=== PATIENT | female | born 1970 | race Caucasian/White ===

== ENCOUNTER → 2017-08-31 | Outpatient (CLI) | payer MEDICARE, OTHER ==
[~2017-08-31] MED LIST: B-COTAB18 PO; CYM/30 PO; DULO60CA44 PO; LAMO100T16 PO; LEVO150T9 PO; MELA1TAB5 PO; MULT-506 PO; OXYC-57 PO; TOPI100T20 PO
[2017-08-31 17:35] LABS: BASO % 0.4 %; BASO ABS # 0.03 K/uL (0-0.2); EOS % 1.5 %; EOS ABS # 0.12 K/uL (0-0.5); HEMOGLOBIN 13.7 g/dL (12.0-16.0); IG# 0.02 K/uL (0.00-0.02); LYMPH % 34.5 %; LYMPH ABS # 2.84 K/uL (1.2-3.4); MEAN CORPUSCULAR HEMOGLOBIN 30.6 pg (25-34); MEAN CORPUSCULAR HGB CONC 32.6 g/dl (32-36); MEAN PLATELET VOLUME 9.9 fL (7.4-10.4); MONO % 5.2 %; MONO ABS # 0.43 K/uL (0.11-0.59); NEUT % 58.2 %; PLATELET COUNT 307 K/uL (130-400); RED CELL DISTRIBUTION WIDTH CV 13.4 % (11.5-14.5); RED CELL DISTRIBUTION WIDTH SD 45.8 fL (36.4-46.3); WHITE BLOOD COUNT 8.24 K/uL (4.8-10.8)
[2017-08-31 18:05] LABS: ALBUMIN 3.3 gm/dl (3.4-5.0); BLOOD UREA NITROGEN 10 mg/dl (7-18); CARBON DIOXIDE 25 mmol/L (21-32); CREATININE 0.96 mg/dl (0.60-1.20); GLUCOSE 93 mg/dl (70-99); POTASSIUM 4.3 mmol/L (3.5-5.1); SODIUM 137 mmol/L (136-145)
[2017-08-31 18:16] LABS: ALKALINE PHOSPHATASE 75 U/L (45-117); ALT/SGPT 25 U/L (12-78); AST/SGOT 16 U/L (15-37); CHOLESTEROL 178 mg/dl (0-200); LDL CHOLESTEROL CALCULATED 109 mg/dl; TOTAL PROTEIN 7.8 gm/dl (6.4-8.2)
== END | disposition home or self-care (01) ==
LOC: C.LABPBG 15:20
PROVIDERS: ATTEND Family Medicine
DX: E03.9 Hypothyroidism, unspecified (principal); Z13.220 Encounter for screening for lipoid disorders; R07.9 Chest pain, unspecified

== ENCOUNTER → 2017-10-26 | Outpatient (CLI) | payer OTHER | END | disposition home or self-care (01) | LOC: C.LABPBG 08:50 | PROVIDERS: ATTEND Family Medicine | DX: E06.3 Autoimmune thyroiditis (principal) ==

== ENCOUNTER → 2017-12-28 | Outpatient (CLI) | payer OTHER ==
--- NOTE | 2017-12-28 21:41 | DIAGNOSTIC IMAGING REPORT ---
MRI OF THE RIGHT SHOULDER CLINICAL HISTORY: Right shoulder pain. COMPARISON STUDY: No priors. TECHNIQUE: MRI of the right shoulder was performed utilizing various T1 and T2 weighted sequences in the axial, sagittal, coronal planes. IV contrast was not administered for this examination. Note that interpretation is suboptimal without plain film correlate. The examination is modestly degraded by motion artifact. FINDINGS: Rotator cuff: There is tendinopathy of the supraspinatous tendon. There is high-grade partial-thickness tearing with a full-thickness tear seen approximately 8 mm from the leading edge on coronal image #9 and sagittal image #4. The tear measures at least 4 mm in AP diameter. There is no musculotendinous retraction. There is tendinopathy with high-grade partial-thickness tearing of the infraspinatus tendon. No full-thickness infraspinatus tear is seen. The teres minor and subscapularis tendons are intact. There is trace subacromial and subdeltoid bursal fluid. The acromioclavicular joint appears maintained noting mild productive degenerative change. Biceps tendon: The long head of the biceps tendon is normal in signal intensity and located within the bicipital groove. The anchor is maintained. Labrum: Grossly intact. Shoulder joint: There is a small joint effusion. Fluid is seen tracking inferiorly along the medial humeral shaft suggesting a HAGL injury. The articular cartilage over the glenoid is well maintained. There is no MRI evidence of fracture. Mild degenerative marrow edema is seen in the greater tuberosity of the humeral head. Musculature and soft tissues: There is mild edema within the bodies of supraspinatus and infraspinatus. No muscular atrophy is seen. IMPRESSION: 1. There is tendinopathy with high-grade partial thickness tearing as well as a full-thickness tear of the supraspinatus tendon as above. No musculotendinous retraction is seen. 2. There is tendinopathy with high-grade partial-thickness tearing of infraspinatus. 3. Mild muscular edema is seen in the bodies of supraspinatus and infraspinatus. 4. There is a small joint effusion. Findings suggest a HAGL lesion. Electronically signed by: Rusty Osuna M.D. 12/28/2017 9:39 PM Dictated Date/Time: 12/28/2017 9:33 PM
== END | disposition home or self-care (01) ==
LOC: C.MRI 20:26
PROVIDERS: ATTEND Family Medicine
DX: M25.511 Pain in right shoulder (principal)

== ENCOUNTER 2018-01-13 06:37 | Day surgery (SDC) | payer OTHER ==
--- NOTE | 2018-01-09 09:58 | History and Physical ---
History & Physical Date January 09, 2018. Chief Complaint Right Shoulder pain History of Present Illness The patient is a 47 year old female with complaints of Right shoulder pain. She sustained a fall on December 16. MRI was obtained and demonstrated a full thickness RCT. She has been doing physical therapy on her shoulder. Patient would like to proceed with arthroscopic rotator cuff repair. Patient denies fever, chills, sweats, chest pain, sob, maria, wheezing, n/v/d/c, numbness, tingling, urinary problems. ROS positive for headache and joint pain. Past Medical/Surgical History PMHx: Hypothyroidism, migraines PSHx: Cholecystectomy, EGD Social History: Patient is a non smoker, rare alcohol use. Denies drug use. Medications: Synthroid, Topamax, Lamictal, Cymbalta, Multivitamin Allergies: Penicillins-hives, Codeine-throat and tongue swelling. Additional History Hepatic Disease: No Endocrine Disorder: Yes (hypothyroid) Kidney Disease: No Hypertension: No Heart Disease: No Bleeding Tendencies: No Infectious Diseases: No Other: Had episode of hypotension with anesthesia last year after EGD Physical Examination Skin: warm/dry, no rash Eyes: normal inspection, sclerae normal ENT: normal ENT inspection, pharynx normal Head: normocephalic, atraumatic Neck: supple, no adenopathy, trachea midline Respiratory/Chest: lungs clear, normal breath sounds Cardiovascular: regular rate, rhythm, no murmur Extremities: + pertinent finding (Decreased ROM in all directions. Abduction to 90 degrees actively, 160 passively, flexion to 120, ER 60. Strength 3/5 with supraspinatus. Tenderness lateral and anterior acromion over greater tuberosity) Neurologic/Psych: no motor/sensory deficits, alert, oriented x 3 Diagnosis Right shoulder Rotator cuff tear Plan of Treatment We reviewed the results of the MRI. It demonstrates a full-thickness rotator cuff tear. We discussed various treatment measures and they wish to proceed with arthroscopic repair. Risks, benefits and alternatives to surgery including but not limited to infection, DVT, pain, stiffness, need for revision surgery, failure to relieve all symptoms, re-tear, damage to blood vessels, damage to nerves, risks of anesthesia were discussed with the patient and they wish to proceed. We will get this scheduled at their convenience. Surgery is scheduled for 01/13/18 for right shoulder arthroscopic rotator cuff repair and SAD.
[2018-01-10 13:06] VITALS: BMI 45.0
[~2018-01-13] VITALS: Ht 165.1 cm; Wt 122.7 kg
[~2018-01-13 06:37] MED LIST changes: +LACTATED RINGER'S 1000ML 1,000 ML IV SCH; -OXYC-57 PO
[2018-01-13 07:19] VITALS: BP 152/82; PULSE 99; TEMP 36.4; O2SAT 96; Ht 165.1 cm; Wt 122.7 kg
[2018-01-13] MEDS ORDERED: ROPIVACAINE 0.5% 5 MG/ML 30 ML VIAL ONE (07:29)
[2018-01-13] MEDS ORDERED: CEFAZOLIN SOD 3000MG/22.5 ML IV PUSH ONE (07:35)
[2018-01-13 07:54] LABS: INR 0.9 (0.9-1.1); PTT PATIENT 23.6 SECONDS (21.0-31.0)
[2018-01-13] MEDS ORDERED: MIDAZOLAM HCL 1 MG/ML 2ML VIAL ONE (08:28)
[2018-01-13] MEDS ORDERED: FENTANYL CITRATE INJ 50 MCG/1 ML 2 ML VIAL ONE ×2 (08:29→10:58)
--- NOTE | 2018-01-13 09:03 | History & Physical Bridge Note ---
H&P Re-Evaluation Bridge Note: I have examined the patient, reviewed the History & Physical and in the interval since the performance of the History & Physical I have noted the following changes of clinical significance: No changes noted
[2018-01-13] MEDS ORDERED: SCOPOLAMINE 1.5 MG TDSY TD ONE ×2 (09:08→09:15)
[2018-01-13] MEDS ORDERED: ATROPINE SULFATE 0.1 MG/ML 5ML SYR IV PRN (09:15)
[2018-01-13] MEDS ORDERED: PROMETHAZINE HCL INJ 12.5 MG in SODIUM CHLORIDE 0.9% 50ML 50 ML IV PRN (09:15)
[2018-01-13] MEDS ORDERED: FENTANYL CITRATE INJ 50 MCG/1 ML 2 ML VIAL IV PRN (09:15)
[2018-01-13] MEDS ORDERED: ONDANSETRON INJ 2 MG/ML 2 ML VIAL IV PRN (09:15)
[2018-01-13] MEDS ORDERED: KETOROLAC TROMETHAMINE 30 MG/ML VIAL IV. PRN (09:15)
[2018-01-13] MEDS ORDERED: LIDOCAINE/EPINEPHRINE 1% 20 ML VIAL ONE (09:28)
[2018-01-13] MEDS ORDERED: EpINEphrine HCL INJ 1 MG/ML 1ML SYRINGE ONE (09:28)
[2018-01-13] MEDS ORDERED: GLYCOPYRROLATE INJ 0.2 MG/ML VIAL ONE (10:38)
[2018-01-13] MEDS ORDERED: ROCURONIUM BROMIDE 10 MG/ML 5 ML VIAL ONE (10:38)
[2018-01-13] MEDS ORDERED: NEOSTIGMINE METHYLSULFATE 5 MG/5 ML SYR ONE (10:38)
[2018-01-13] MEDS ORDERED: ONDANSETRON INJ 2 MG/ML 2 ML VIAL ONE (10:38)
[2018-01-13] MEDS ORDERED: PROPOFOL IV EMULSION 10 MG/ML 20 ML VIAL ONE (10:38)
[2018-01-13] MEDS ORDERED: DEXAMETHASONE SOD INJ 4 MG/ML VIAL ONE (10:38)
[2018-01-13] MEDS ORDERED: LIDOCAINE HCL 2% 2 ML VIAL (20MG/ML) ONE (10:38)
--- NOTE | 2018-01-13 11:12 | [facility] Operative Report ---
Operative Report Operative Date January 13, 2018. Pre-Operative Diagnosis Right shoulder rotator cuff tear Post-Operative Diagnosis Right Shoulder Rotator Cuff Tear, Labral Tear, Impingement, Synovitis Procedure(s) Performed Right Shoulder Arthroscopy with Rotator Cuff Repair, Subacromial Decompression, Extensive Debridement Surgeon Dr. Patrick Kyle Electronic Imager Surgeon(s) Elpidio Caldwell PA-C Estimated Blood Loss 5ml Specimens None per surgeon. Drains None Anesthesia Type General Regional Complication(s) none Disposition Recovery Room / PACU Indications The patient is a 39-year-old female developed a full-thickness tear of the supraspinatus. We discussed first treatment measures and she wishes to proceed for arthroscopic repair. Description of Procedure The MRI demonstrated a full-thickness rotator cuff tear. We discussed various treatment measures. The patient wished to proceed with arthroscopic repair. Risks, benefits and alternatives to surgery including, but not limited to, infection DVT, pain, stiffness, need for revision surgery, failure to relieve all symptoms, damage to blood vessels, damage to nerves, risk of anesthesia were discussed with the patient and they wished to proceed. The patient was identified. Laterality was confirmed and marked. The patient received a preoperative antibiotic as well as an interscalene block. They were transferred to the operating room and placed in the supine position and induced into general endotracheal anesthesia per the anesthesia staff. The patient was then safely transferred to the lateral decubitus position, secured by a beanbag. An axillary roll was placed. All pressure points were well-padded. The limb was placed in 10 pounds of lateral traction and then prepped and draped in the usual standard manner with ChloraPrep. The portal sites were anesthetized with 2% lidocaine with epinephrine. I made a standard posterior viewing portal made through a stab incision and then bluntly entered the glenohumeral joint. Then under spinal needle localization, I establish an anterior superolateral portal. The patient had a full-thickness rotator cuff tear through the [supraspinatus]. They had a degenerative tear in the anterior, superior and posterior aspects of the glenoid labrum. This was debrided back to a stable base utilizing a shaver. Synovitic change in the anterior aspect of the joint was debrided utilizing a shaver. Cartilage of the humeral head and glenoid [were normal]. The long head of the biceps tendon had some minor degeneration to the superior labrum insertion. This is debrided utilizing combination shaver as well as cautery wand.. The subscapularis [was normal]. I then removed the instrumentation from the joint and entered the subacromial space and established a lateral portal. There was a full-thickness rotator cuff tear that measured about 1 cm in diameter. I debrided the footprint with a shaver to establish a good bleeding response. Through a stab incision I placed a 5.5 mm HEALICOIL suture anchor. I passed the ultra braid sutures in a horizontal mattress with a FirstPass. I tied the ULTRABRAID sutures with sliding [place] knots reinforced for 3 half hitches on alternating posts. I then took the ULTRABRAID sutures and I placed them in a 5.5 mm Multi-Fix S anchor. I placed this laterally, completing my double row construct. I then released the CA ligament with cautery and performed a subacromial decompression , first removing the anterior inferior spur from laterally and then completing with a cutting block technique. All instrumentation was then removed from the shoulder. Portal sites were closed with nylon. A sterile dressing was applied and a sling placed. All needle and sponge counts were correct at the end of the procedure. The patient was transferred to the PACU in stable condition without apparent complication. The PA-C was necessary for assistance with procedure for assistance in positioning, prepping, draping, retraction and closure. I attest to the content of the Intraoperative Record and any orders documented therein. Any exceptions are noted below.
[2018-01-13] MEDS ORDERED: OXYC-57 PO (11:28)
--- NOTE | 2018-01-13 11:31 | Discharge Instructions ---
Discharge Instructions Date of Service January 13, 2018. Visit Reason for Visit: Right Shoulder Rotator Cuff Tear, Impingement Synd Discharge Discharge Diagnosis / Problem: Right shouler RTC tear, impingement syndrome Discharge Goals Goal(s): Decrease discomfort, Improve function Activity Recommendations Activity Limitations: per Instructions/Follow-up section Anesthesia . Post Anesthesia Instructions: If you have had General Anesthesia or IV Sedation: * Do not drive today. * Resume driving when surgeon permits. * Do not make important decisions or sign legal documents today. * Call surgeon for: 1. Temperature elevations greater than 101 degrees F. 2. Uncontrollable pain. 3. Excessive bleeding. 4. Persistent nausea and vomiting. 5. Medication intolerance (nausea, vomiting or rash). * For nausea and vomiting use only clear liquids such as: tea, soda, bouillon until nausea subsides, then gradually increase diet as tolerated. * If you have any concerns or questions, call your surgeon's office. If physician is unavailable and it is an emergency, call 911 or go to the nearest emergency room. . Instructions / Follow-Up Instructions / Follow-Up U DISCHARGE INSTRUCTIONS: ROTATOR CUFF REPAIR SELF CARE INSTRUCTIONS A. You are permitted to loosen your sling/immobilizer to move your elbow, wrist , and hand to prevent stiffness. You should use your well arm (good arm) to assist the operated extremity when trying to raise the arm away from the body, hygiene purposes. Do NOT actively try to use/engage your shoulder muscles in operative arm at this time. You should NOT do overhead activity, lifting, or attempt to reach behind your back. B. You may/may not be instructed to start Physical Therapy upon discharge depending upon the size and difficulty of the repair. You will be provided a prescription for therapy with specific restrictions, if needed, at time of discharge. C. At 48 hours post-operatively, you may change your dressing. (Leave white steri-strips intact if present). Use band-aids and change daily. You are allowed to shower at this time and get the incision area wet, but DO NOT soak or submerge incision area in water. (No baths, swimming pools, hot tubs) D. Do NOT apply soap or any ointment/lotions directly over incision. E. You may use ice as needed to operative shoulder SPECIAL CARE INSTRUCTIONS: VERY IMPORTANT TO READ AND REVIEW A. There are a few signs you need to watch for after you are home. Call [facility] at [phone] if you experience any of the following: a. Increased severe shoulder pain. Some pain is expected especially when you exercise b. Increased swelling in your shoulder or arm; pain or swelling in either upper extremity. (Note: swelling and stiffness is normal and expected for several weeks post op, depending on type of shoulder surgery you had). c. Any fluid or drainage from the incision; redness of the incision. d. Shortness of breath or chest pain. B. Please call [facility] at [phone] if you have any questions or concerns about your operation or recovery. C. Call your physician if: a. Temperature is greater than 101 degrees (F). b. Pain is not relieved by prescribed pain medications. c. Increase drainage or redness from incision. d. Unanswered questions or concerns. D. Pain Medication: a. You will be prescribed pain medication upon discharge that should last till your first post-operative appointment. b. If you experience nausea and/or skin rash, discontinue this medication and contact our office for an alternative medication. c. Caution- narcotic pain medication can cause constipation. FOLLOW UP VISIT: Please call [facility] at [phone] to schedule a follow up appointment with Dr. Kyle 10-14 days from your surgery date. Diet Recommendations Recommended Home Diet: resume previous diet Procedures Procedures Performed: Right Shoulder Arthroscopy with Rotator Cuff Repair, Subacromial Decompression, Extensive Debridement Pending Studies Studies pending at discharge: no Medical Emergencies . Who to Call and When: Medical Emergencies: If at any time you feel your situation is an emergency, please call 911 immediately. . Non-Emergent Contact Non-Emergency issues call your: Surgeon Call Non-Emergent contact if: temperature is above 101, your pain is not controlled, your pain is concerning you, wound has increased drainage, wound has increased redness . . "Provider Documentation" section prepared by Elpidio Caldwell. . [place] Search Results: patient reviewed within database, no issues identified
--- NOTE | 2018-01-13 12:10 | Anesthesiology Progress Note ---
Anesthesia Post Op Note Date & Time January 13, 2018 at 12:10 Vital Signs Pain Intensity: 0 Vital Signs Past 12 Hours Date Time Temp Pulse Resp B/P (MAP) Pulse Ox O2 Delivery O2 Flow Rate FiO2 01/13/18 12:05 36.3 85 18 123/73 97 Nasal Cannula 2 01/13/18 11:55 84 18 106/70 95 Nasal Cannula 2 01/13/18 11:45 87 18 109/60 96 Oxymask 10 01/13/18 11:35 88 18 120/74 96 Oxymask 10 01/13/18 11:29 36.6 86 16 115/68 95 Oxymask 10 01/13/18 07:19 36.4 99 20 152/82 (105) 96 Room Air Notes Mental Status: alert / awake / arousable, participated in evaluation Pt Amnestic to Procedure: Yes Nausea / Vomiting: adequately controlled Pain: adequately controlled Airway Patency, RR, SpO2: stable & adequate BP & HR: stable & adequate Hydration State: stable & adequate Anesthetic Complications: no major complications apparent
[2018-01-13 12:20] VITALS: BP 113/71; PULSE 84; TEMP 36.5; O2SAT 95
[2018-01-13 12:50] VITALS: BP 117/77; PULSE 87; TEMP 36.4; O2SAT 96
[2018-01-13 13:20] VITALS: BP 124/79; PULSE 67; TEMP 36.5; O2SAT 94
== END 2018-01-13 13:51 | disposition home or self-care (01) ==
LOC: C.ACU 06:37
PROVIDERS: ATTEND Orthopaedic Surgery
DX: S46.011A Strain of muscle(s) and tendon(s) of the rotator cuff of right shoulder, initial encounter (principal); S43.431A Superior glenoid labrum lesion of right shoulder, initial encounter; M75.41 Impingement syndrome of right shoulder; M65.811 Other synovitis and tenosynovitis, right shoulder; W19.XXXA Unspecified fall, initial encounter; E03.9 Hypothyroidism, unspecified; Z90.49 Acquired absence of other specified parts of digestive tract; Z79.899 Other long term (current) drug therapy; Z98.890 Other specified postprocedural states; Z88.0 Allergy status to penicillin; Z88.5 Allergy status to narcotic agent; E66.9 Obesity, unspecified; Z68.42 Body mass index [BMI] 45.0-49.9, adult

== ENCOUNTER 2019-02-22 09:39 | Observation (INO) ==
[2019-02-22] MEDS ORDERED: ONDANSETRON INJ 2 MG/ML 2 ML VIAL IV STA (10:05)
[2019-02-22] MEDS ORDERED: SODIUM CHLORIDE 0.9% 1000ML 1,000 ML IV ONE (10:05)
[2019-02-22] MEDS ORDERED: MoRPHine SULFATE 4 MG/ML 1 ML CARP\\VIAL IV STA (10:05)
--- NOTE | 2019-02-22 10:12 | Emergency Department Note ---
ED Provider Note CHIEF COMPLAINT: Right lower quadrant pain HISTORY OF PRESENTING ILLNESS: This is a 49-year-old female who presents to the emergency department by private vehicle with complaint of right lower quadrant pain. She states that she had a CT scan performed as an outpatient this morning, she states she was called and told to come to the ER because she has acute appendicitis. Patient states that she started with some abdominal pain about 2 weeks ago it became much worse about 4 or 5 days ago and she has been having increased nausea and a decreased appetite the past few days. She also states she has been having some diarrhea the past few days. She denies any vomiting and she denies any fevers or chills. She has had a cholecystectomy, she denies other abdominal surgeries. She last ate at 8:30 AM today. She denies any other symptoms of headaches, dizziness or syncope, chest pain, shortness of breath, back pain, urinary complaints, or unusual rash. REVIEW OF SYSTEMS: A complete 10 point review of systems was reviewed with the patient with pertinent positives and negatives as per history of present illness. All else were negative. PAST MEDICAL HISTORY: GERD, arthritis, hypothyroidism, migraines, depression, cholecystectomy, diverticulitis SOCIAL HISTORY: Lives at home, she denies tobacco use ALLERGIES: Reviewed in chart PHYSICAL EXAM: CONSTITUTIONAL: Pleasant and cooperative. Nontoxic-appearing and in no acute distress. Well appearing and well nourished. HEENT: Normocephalic, atraumatic. PERRL, EOMI. pharynx normal. NECK: Supple, full active range of motion without discomfort. RESPIRATORY: Clear to auscultation bilaterally with no wheezing, crackles, rhonchi or stridor. Equal expansion bilaterally. CARDIOVASCULAR: Regular rate and rhythm with no murmurs, rubs or gallops. Normal peripheral perfusion. No edema. GASTROINTESTINAL: Moderately tender to palpation in the right lower quadrant, positive guarding, negative rebound. Positive McBurney's point tenderness. Abdomen is soft, nondistended, obese abdomen. No palpable masses or HSM. Bowel sounds present in all quadrants. No CVA tenderness bilaterally. MUSCULOSKELETAL: Full range of motion of all joints without discomfort. INTEGUMENTARY: No rash or other significant dermatologic conditions noted. NEUROLOGIC: Alert and oriented X 4 with normal affect. Normal strength and sensation in all 4 extremities. Normal speech. Normal gait observed. ED COURSE AND MEDICAL DECISION MAKING: CC: Patient presenting with complaint of right lower quadrant abdominal pain DIFFERENTIAL DIAGNOSIS: Includes, but not limited to appendicitis, abdominal abscess, perforation, among others. INTERPRETATION OF LABS: No leukocytosis, no anemia, normal platelets, no significant electrolyte abnormalities, normal renal function, normal liver enzymes and lipase. Urine negative. IMAGING: CT abd pelvis IV con only CLINICAL HISTORY: 49 years-old Female presenting with R19.8 Other specified symptoms and signs, upper abdominal pain. TECHNIQUE: Multidetector CT of the abdomen and pelvis was performed after the administration of intravenous contrast. IV contrast: 93 mL of Optiray 320. One or more dose lowering techniques were used consistent with the principles of ALARA (as low as reasonably achievable), including automatic exposure control, mA or kV adjustment to individual patient size, and/or use of iterative reconstruction. COMPARISON: 02/14/2019. CT DOSE (mGy.cm): The estimated cumulative dose is 1224.78 mGy.cm. FINDINGS: Criminal Justice Lawyer topogram: Unremarkable. Lung bases: Normal heart size. No pericardial or pleural effusion. No focal infiltrate or nodule at the lung bases. Liver: Normal morphology. No liver lesion. Patent hepatic vasculature. Biliary: Mild biliary ductal prominence likely a reservoir effect in the post cholecystectomy state. Gallbladder surgically absent. Pancreas: Normal. Spleen: Normal. Adrenal glands: Normal. Kidneys and ureters: Normal renal parenchyma. 5 mm nonobstructing left renal calculus. No hydronephrosis. Ureters normal. Bladder: Incompletely evaluated secondary to underdistention. Pelvic organs: Uterus and ovaries normal. Bowel: The appendix is dilated up to 12 mm with vague surrounding per iappendiceal fat stranding. No bowel obstruction. Trace hiatal hernia. Peritoneal cavity: No free fluid or intraperitoneal gas. Lymph nodes: Few prominent mesenteric lymph nodes in the superior pelvis in the region of the appendix. Vasculature: Aorta and IVC patent and normal in caliber. Abdominal wall: Normal. Musculoskeletal: Normal. IMPRESSION: 1. Acute uncomplicated appendicitis. Surgical consultation is necessary. MEDICATION RECONCILIATION: I attest that I have personally reviewed the patient's current medication list. INITIAL VITAL SIGNS REVIEW: I reviewed the patient's initial vital signs and interpret them as follows: T: Afebrile; BP: Normotensive; HR: Mildly tachycardic; RR: Within normal limits; Pulse Ox: Within normal limits on room air. Blood pressure screening: The patient was found to have normal blood pressure on screening and does not require follow-up for repeat blood pressure check. MDM SUMMARY: Patient was evaluated at bedside, history and physical exam performed. Patient is alert and oriented, no acute distress, resting calmly in stretcher. Patient has tenderness to palpation the right lower quadrant, positive guarding, but no acute abdomen. CT abdomen/pelvis reviewed as above, noted below for uncomplicated acute appendicitis, no evidence of abscess or perforation. Orders were placed at bedside for labs, IV fluid bolus for hydration, IV mor phine for pain, IV Zofran for nausea, and keeping her n.p.o. at this time. Patient discussed with Dr. King, who agrees with my assessment, plan, and disposition. I spoke on the phone with Kleber Patel PA-C with general surgery, who agrees to evaluate the patient for admission/OR. Patient reassessed multiple times throughout ED stay, she is remained hemodynamically stable and afebrile and reports her pain is improved after the morphine. The patient was updated on all results and plan for admission and probable OR today, she verbalized understanding and was agreeable to this plan. The patient was stable at time of admission. The chart was completed utilizing [employer] Speech voice recognition software. Grammatical errors, random word insertions, pronoun errors, and incomplete sentences are an occasional consequence of this system due to software limitations, ambient noise, and hardware issues. Any formal questions or concerns about the content, text, or information contained within the body of this dictation should be directly addressed to the nurse practitioner for clarification. Impression & Plan Appendicitis Past Med/Surg History Medical History Stress incontinence in female Rotator cuff tear Jennifer's thyroiditis GERD without esophagitis Depression Common migraine with intractable migraine Arthritis Morbid obesity PONV (postoperative nausea and vomiting) Anemia Diverticulitis Pneumonia Right rotator cuff tear Surgical History S/P arthroscopy of shoulder patient was noted to aspirate after extubation as well as have PONV S/P cholecystectomy Family History Sister Alcohol abuse Anxiety Depression Diabetes Myocardial infarction Gallbladder disease Asthma Mother Anxiety Depression Gallbladder disease Myocardial infarction Asthma Father Coronary heart disease Other Hypertension Nephrolithiasis Social History Preferred Language: Pashto Communication Ability: Effective 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 Beliefs That Will Affect Care: None marital status: Current Living Situation: Alone Other Information That Helps Us Care for You: No Feels Safe at Home: Yes Safety Concerns: Feels Safe At This Time Smoking Status: Never smoker Do You Dip or Chew Tobacco: No Second Hand Exposure: No Tobacco Cessation Education Requested by Patient: No Hx Alcohol Use: No Hx Substance Use: No Results & Data Vital Signs Vital Signs - 24 hr 02/22/19 09:44 02/22/19 11:18 02/22/19 11:21 Temperature 36.5 C 37.1 C Temperature Source Oral Oral Sepsis Recent Fever Within 48 Hours No Sepsis Action Taken by Nursing No Action Required Pulse Rate 91 H 80 Pulse Rate from SpO2 Sensor 79 Respiratory Rate 18 26 H Blood Pressure 100/68 Blood Pressure Mean 78 Blood Pressure Position Sitting Pulse Oximetry 97 98 Oxygen Delivery Method Room Air 02/22/19 11:22 02/22/19 11:23 02/22/19 11:30 Temperature Temperature Source Sepsis Recent Fever Within 48 Hours Sepsis Action Taken by Nursing Pulse Rate 67 78 69 Pulse Rate from SpO2 Sensor 68 79 70 Respiratory Rate 19 23 19 Blood Pressure 114/60 132/66 Blood Pressure Mean 78 88 Blood Pressure Position Pulse Oximetry 96 98 97 Oxygen Delivery Method Laboratory Data Result diagrams: 02/22/19 10:09 02/22/19 10:09 Lab Results 02/22/19 02/22/19 02/22/19 Range/Units 10:09 10:09 10:52 WBC 6.40 (4.8-10.8) K/uL RBC 4.46 (4.2-5.4) M/uL Hgb 13.6 (12.0-16.0) g/dL Hct 40.8 (37-47) % MCV 91.5 (80-100) fL MCH 30.5 (25-34) pg MCHC 33.3 (32-36) g/dL RDW Std Deviation 43.2 (36.4-46.3) fL RDW Coeff of Lissy 13.0 (11.5-14.5) % Plt Count 293 (130-400) K/uL MPV 9.6 (7.4-10.4) fL Immature Gran % (Auto) 0.5 % Neut % (Auto) 51.5 % Lymph % (Auto) 39.2 % Cochran % (Auto) 6.3 % Eos % (Auto) 2.0 % Baso % (Auto) 0.5 % Immature Gran # (Auto) 0.03 H (0.00-0.02) K/uL Neut # (Auto) 3.30 (1.4-6.5) K/uL Lymph # (Auto) 2.51 (1.2-3.4) K/uL Cochran # (Auto) 0.40 (0.11-0.59) K/uL Eos # (Auto) 0.13 (0-0.5) K/uL Baso # (Auto) 0.03 (0-0.2) K/uL Sodium 140 (136-145) mmol/L Potassium 3.9 (3.5-5.1) mmol/L Chloride 110 H (98-107) mmol/L Carbon Dioxide 25 (21-32) mmol/L Anion Gap 5.0 (3-11) BUN 14 (7-18) mg/dl Creatinine 1.13 (0.6-1.2) mg/dl Est Cr Clr Drug Dosing 75.8 ml/min Est GFR ( Amer) 65.6 Est GFR (Non-Af Amer) 56.6 BUN/Creatinine Ratio 12.0 (10-20) Glucose 94 (70-99) mg/dl Calcium 9.1 (8.5-10.1) mg/dl Total Bilirubin 0.3 (0.2-1) mg/dl AST 15 (15-37) U/L ALT 24 (12-78) U/L Alkaline Phosphatase 86 (45-117) U/L Total Protein 7.4 (6.4-8.2) gm/dl Albumin 3.2 L (3.4-5.0) gm/dl Globulin 4.2 H (2.5-4.0) gm/dl Albumin/Globulin Ratio 0.8 L (0.9-2) Lipase 117 (73-393) U/L Urine Test Negative (Negative) Administered Medications Lactated Ringer's (Lr) 1,000 mls @ 125 mls/hr IV .Q8H JEAN PIERRE Stop: 03/24/19 12:42 Last Admin: 02/22/19 12:51 Dose: 125 mls/hr Documented by: [id number] Ondansetron HCl (Zofran) 4 mg IV Q4H PRN PRN Reason: Nausea And Vomiting Stop: 03/24/19 12:42 Last Admin: 02/22/19 12:51 Dose: 4 mg Documented by: [id number] Discontinued Medications Sodium Chloride (Nss 1000ml) 1,000 mls @ 999 mls/hr IV .Q1H1M ONE Stop: 02/22/19 11:05 Last Infusion: 02/22/19 11:44 Dose: 0 mls/hr Documented by: [id number] Admin: 02/22/19 10:36 Dose: 999 mls/hr Documented by: [id number] Lidocaine/Epinephrine (Xylocaine/Epinephrine 1%) Confirm Administered Dose 20 ml .ROUTE .STK-MED ONE Stop: 02/22/19 10:46 Last Admin: 02/22/19 13:01 Dose: Not Given Documented by: [id number] Morphine Sulfate (Morphine Sulfate) 4 mg IV NOW STA Stop: 02/22/19 10:06 Last Admin: 02/22/19 10:35 Dose: 4 mg Documented by: [id number] Ondansetron HCl (Zofran) 4 mg IV NOW STA Stop: 02/22/19 10:06 Last Admin: 02/22/19 10:36 Dose: 4 mg Documented by: [id number] Scopolamine (Transderm-Scop) Confirm Administered Dose 1.5 mg .ROUTE .STK-MED ONE Stop: 02/22/19 15:47 Last Admin: 02/22/19 15:50 Dose: 1.5 mg Documented by: [id number] Discharge Plan Visit Data *Final* Discharge Date/Time: 02/22/19 12:30 Chief Complaint: Abdominal Pain Stated Complaint: ABDOMINAL PAIN ED Provider: Eliud King ED Midlevel Provider: Bhavna Gomez Discharge Problem: Appendicitis Patient Disposition: Admitted As Inpatient Condition: Good Discharge Instructions Interventions: ED Discharge Assessment Last Done: 02/22/19 12:30
[2019-02-22] MEDS ORDERED: fentaNYL citrate 100 MCG/2 ML VIAL IV PRN (10:40)
[2019-02-22] MEDS ORDERED: ATROPINE SULFATE 0.1 MG/ML 10ML SYR IV PRN ×2 (10:40→15:46)
[2019-02-22] MEDS ORDERED: ePHEDrine sulfate 50 MG/ML AMP IV PRN ×2 (10:40→15:46)
[2019-02-22] MEDS ORDERED: ONDANSETRON INJ 2 MG/ML 2 ML VIAL IV PRN ×2 (10:40→15:46)
[2019-02-22 10:42] LABS: Basophils # (auto) 0.03 K/uL (0-0.2); Basophils % (auto) 0.5 %; Eosinophils # (auto) 0.13 K/uL (0-0.5); Hematocrit (blood only) 40.8 % (37-47); Hemoglobin 13.6 g/dL (12.0-16.0); Immature Granulocytes # (auto) 0.03 K/uL (0.00-0.02); Immature Granulocytes % (auto) 0.5 %; Lymphocytes # (auto) 2.51 K/uL (1.2-3.4); Lymphocytes % (auto) 39.2 %; Mean Corpuscular Hgb Conc 33.3 g/dL (32-36); Mean Corpuscular Volume 91.5 fL (80-100); Mean Platelet Volume 9.6 fL (7.4-10.4); Monocytes % (auto) 6.3 %; Neutrophils % (auto) 51.5 %; Platelet Count 293 K/uL (130-400); RDW Standard Deviation 43.2 fL (36.4-46.3); Red Blood Count 4.46 M/uL (4.2-5.4)
[2019-02-22] MEDS ORDERED: LIDOCAINE/EPINEPHRINE 1% 20 ML VIAL ONE ×2 (10:45→15:09)
[2019-02-22 10:58] LABS: Albumin Level 3.2 gm/dl (3.4-5.0); Calcium 9.1 mg/dl (8.5-10.1); Creatinine Clr Calc Pharmacy 75.8 ml/min; Est GFR (African American) 65.6; Est GFR (Non-African American) 56.6; Potassium 3.9 mmol/L (3.5-5.1)
[2019-02-22 11:01] LABS: Albumin Globulin Ratio 0.8 (0.9-2); Bilirubin,Total 0.3 mg/dl (0.2-1); Globulin 4.2 gm/dl (2.5-4.0); Total Protein 7.4 gm/dl (6.4-8.2)
[2019-02-22 11:05] LABS: Pregnancy Test, Urine Negative (Negative)
--- NOTE | 2019-02-22 11:19 | History & Physical Report ---
Date of Service February 22, 2019 Assessment & Plan (1) Appendicitis: History not classic for appendicitis, but appendix is abnormal on CT. Will plan for laparoscopic appendectomy this afternoon after she has been NPO. History of Present Illness Primary Care Provider: Fanta Martinez, DO 49 y/o female with 1 week or more of vague abdominal pain, nausea, loss of appetite. She had diarrhea beginning Tuesday, pain has localized to periumbilical/RLQ. She saw her PCP yesterday, had outpatient CT this morning and referred to the ER for reading of appendicitis. Had breakfast around 8:30. No fevers or chills, some nausea, no vomiting. Previous lap lizy. Allergies Allergy/AdvReac Type Severity Reaction Status Date / Time codeine Allergy Severe TONGUE AND Verified 02/22/19 10:23 THROAT SWELLING Penicillins Allergy Severe HIVES Verified 02/22/19 10:23 Home Medications Home Medications Medication Instructions Recorded Confirmed Type fremanezumab-vfrm 225 mg/1.5 mL 225 mg SQ MONTHLY #1.5 ml 02/07/19 02/22/19 Rx subcutaneous syringe melatonin 10 mg capsule 10 mg PO HS PRN #30 cap 02/07/19 02/22/19 Rx propranolol 20 mg tablet 20 mg PO BID #60 tab 02/07/19 02/22/19 Rx tamsulosin 0.4 mg capsule 0.4 mg PO HS #90 cap 02/07/19 02/22/19 Rx topiramate 100 mg tablet 100 mg PO BID #60 tab 02/07/19 02/22/19 Rx aspirin 81 mg PO QAM 02/22/19 02/22/19 History duloxetine [Cymbalta] 60 mg PO QAM 02/22/19 02/22/19 History lamotrigine [Lamictal] 50 mg PO PM 02/22/19 02/22/19 History levothyroxine [Synthroid] 150 mcg PO QAM 02/22/19 02/22/19 History magnesium oxide 500 mg PO PM 02/22/19 02/22/19 History multivitamin 1 cap PO QAM 02/22/19 02/22/19 History rosuvastatin [Crestor] 20 mg PO PM 02/22/19 02/22/19 History vitamin B complex [B 1 tab PO QAM 02/22/19 02/22/19 History Complex-Vitamin B12] Past Med/Surg History Medical History Stress incontinence in female Rotator cuff tear Jennifer's thyroiditis GERD without esophagitis Depression Common migraine with intractable migraine Arthritis Morbid obesity PONV (postoperative nausea and vomiting) Anemia Diverticulitis Pneumonia Right rotator cuff tear Surgical History S/P arthroscopy of shoulder patient was noted to aspirate after extubation as well as have PONV S/P cholecystectomy Family History Sister Alcohol abuse Anxiety Depression Diabetes Myocardial infarction Gallbladder disease Asthma Mother Anxiety Depression Gallbladder disease Myocardial infarction Asthma Father Coronary heart disease Other Hypertension Nephrolithiasis Social History Preferred Language: Sudanese Communication Ability: Effective 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 Beliefs That Will Affect Care: None marital status: Current Living Situation: Alone Other Information That Helps Us Care for You: No Feels Safe at Home: Yes Safety Concerns: Feels Safe At This Time Smoking Status: Never smoker Do You Dip or Chew Tobacco: No Second Hand Exposure: No Tobacco Cessation Education Requested by Patient: No Hx Alcohol Use: No Hx Substance Use: No Review of Systems Constitutional: + malaise and + anorexia; no fever and no chills Gastrointestinal: + abdominal pain, + nausea and + diarrhea/loose stools; no vomiting Physical Exam Constitutional: WD/WN, vitals as above Respiratory: normal respiratory effort, lungs clear to auscultation Cardiovascular: RRR, no murmur, no edema Gastrointestinal (Abdomen): Inspection/Auscultation: abdomen not distended Percussion/Palpation: + abdomen tender (RLQ/RMQ) and abdomen soft; no guarding Skin: no rashes, warm and dry Results & Data Vital Signs (Past 12 Hours) Vital Signs Temp Pulse Resp BP Pulse Ox 02/22/19 09:44 36.5 C 91 H 18 100/68 97
--- NOTE | 2019-02-22 11:33 | History & Physical Bridge Note ---
Date of Service February 22, 2019 History & Physical Bridge Note I have examined the patient, reviewed the History & Physical and in the interval since the performance of the History & Physical I have noted the following changes of clinical significance: no changes noted will proceed with lap appy possible open r and c explained to pt including that surgery may not help diarrhea and may need further work up anesthesia wants to wait 8 hours after her oral intake before doing surgery
[2019-02-22] MEDS ORDERED: MoRPHine SULFATE 4 MG/ML 1 ML CARP\\VIAL IV PRN (12:43)
[2019-02-22] MEDS: ONDANSETRON INJ 2 MG/ML 2 ML VIAL IV PRN ×3 (12:51→23:32)
[2019-02-22] MEDS: LACTATED RINGER'S 1,000 ML IV SCH ×2 (12:51→21:05)
[2019-02-22] MEDS ORDERED: SCOPOLAMINE 1.5 MG TDSY ONE (15:46)
[2019-02-22] MEDS ORDERED: PHENYLEPHRINE 100MCG/ML 5ML SYR IV PRN (15:46)
[2019-02-22] MEDS ORDERED: LABETALOL HCL IV 5 MG/ML 20ML IV PRN (15:46)
[2019-02-22] MEDS ORDERED: SCOPOLAMINE 1.5 MG TDSY TD ONE (15:47)
[2019-02-22] MEDS ORDERED: LIDOCAINE HCL 2% 2 ML VIAL/AMP(20MG/ML) INFIL ONE (15:48)
[2019-02-22] MEDS ORDERED: PROPOFOL IV EMULSION 10 MG/ML 20 ML VIAL IV ONE (15:48)
[2019-02-22] MEDS ORDERED: ROCURONIUM BROMIDE 10 MG/ML 5 ML VIAL ONE ×2 (15:48→16:46)
[2019-02-22] MEDS ORDERED: SUCCINYLCHOLINE CHLORIDE 20 MG/ML 10 ML VIAL ONE (15:48)
--- NOTE | 2019-02-22 15:48 | Anesthesiology Consultation ---
Date of Service February 22, 2019 The patient had a recent cardiac workup in [place]. Assessment & Plan (1) Encounter for pre-operative examination: Chart Review Chart Review: Acceptable Risk for Surgery and Patient NOT seen in Pre Admission Testing Consults Requested none History Surgery Operation Date: 02/22/19 10:25 Proposed Procedures p Laparoscopic Appendectomy - Rigo Goncalves MD Height/Weight Height: 5 ft 4 in Weight: 119.6 kg Allergies Allergy/AdvReac Type Severity Reaction Status Date / Time codeine Allergy Severe TONGUE AND Verified 02/22/19 10:23 THROAT SWELLING Penicillins Allergy Severe HIVES Verified 02/22/19 10:23 Medications Home Medications Medication Instructions Recorded Confirmed Last Taken fremanezumab-vfrm 225 mg/1.5 mL 225 mg SQ MONTHLY #1.5 ml 02/07/19 02/22/19 01/24/19 subcutaneous syringe melatonin 10 mg capsule 10 mg PO HS PRN #30 cap 02/07/19 02/22/19 02/19/19 propranolol 20 mg tablet 20 mg PO BID #60 tab 02/07/19 02/22/19 02/21/19 tamsulosin 0.4 mg capsule 0.4 mg PO HS #90 cap 02/07/19 02/22/19 02/08/19 topiramate 100 mg tablet 100 mg PO BID #60 tab 02/07/19 02/22/19 02/21/19 aspirin 81 mg PO QAM 02/22/19 02/22/19 02/21/19 duloxetine [Cymbalta] 60 mg PO QAM 02/22/19 02/22/19 02/21/19 lamotrigine [Lamictal] 50 mg PO PM 02/22/19 02/22/19 02/21/19 levothyroxine [Synthroid] 150 mcg PO QAM 02/22/19 02/22/19 02/21/19 magnesium oxide 500 mg PO PM 02/22/19 02/22/19 02/21/19 multivitamin 1 cap PO QAM 02/22/19 02/22/19 02/21/19 rosuvastatin [Crestor] 20 mg PO PM 02/22/19 02/22/19 02/21/19 vitamin B complex [B 1 tab PO QAM 02/22/19 02/22/19 02/21/19 Complex-Vitamin B12] Active Medications Generic Name Dose Route Start Last Admin Trade Name Jerome PRN Reason Stop Dose Admin Lactated Ringer's 1,000 mls @ 125 mls/hr 02/22/19 12:43 02/22/19 12:51 Lr IV 03/24/19 12:42 125 mls/hr .Q8H JEAN PIERRE Administration Ondansetron HCl 4 mg 02/22/19 12:43 02/22/19 12:51 Zofran IV 03/24/19 12:42 4 mg Q4H PRN Administration Nausea And Vomiting NPO Date Last Intake of Fluids: 02/22/19 Time Last Intake of Fluids: 08:30 Last Intake of Fluids Comment: Coffee Date Last Intake of Solids: 02/22/19 Time Last Intake of Solids: 08:30 Last Intake of Solids Comment: chicken tortilla with lettuce and tomato Past Medical History Medical History Stress incontinence in female Rotator cuff tear Jennifer's thyroiditis GERD without esophagitis Depression Common migraine with intractable migraine Arthritis Morbid obesity PONV (postoperative nausea and vomiting) Anemia Diverticulitis Pneumonia Right rotator cuff tear Exercise / Class Metabolic Activity II 4-5 Yardwork/Stairs/Walk up hill Past Family History Family History Sister Alcohol abuse Anxiety Depression Diabetes Myocardial infarction Gallbladder disease Asthma Mother Anxiety Depression Gallbladder disease Myocardial infarction Asthma Father Coronary heart disease Other Hypertension Nephrolithiasis Past Surgical History Surgical History S/P arthroscopy of shoulder patient was noted to aspirate after extubation as well as have PONV S/P cholecystectomy Past Anesthesia History Other (PONV) History of PONV No Hx of Motion Sickness and History of PONV Social History Smoking Status: Never smoker Do You Dip or Chew Tobacco: No Hx Alcohol Use: No Hx Substance Use: No substance use type: does not use Physical Exam Vital Signs Last Vital Signs Temp 36.4 C L 02/22/19 15:40 Pulse 64 02/22/19 15:40 Resp 18 02/22/19 15:40 BP 121/55 L 02/22/19 15:40 Pulse Ox 100 02/22/19 15:40 Testing Laboratory Results 02/22/19 10:09 02/22/19 10:09 Urine Test Negative (Negative) 02/22/19 10:52 02/22/19 10:52 Urine Test Negative
[2019-02-22] MEDS ORDERED: MIDAZOLAM HCL 1 MG/ML 2ML VIAL ONE (15:49)
[2019-02-22] MEDS ORDERED: fentaNYL citrate 100 MCG/2 ML VIAL ONE ×2 (15:49→17:26)
[2019-02-22] MEDS ORDERED: ACETAMINOPHEN 1000 MG/100 ML IV IV ONE (15:54)
[2019-02-22] MEDS ORDERED: CHECK SCOPOLAMINE PATCH PLACEMENT SCH (16:00)
--- NOTE | 2019-02-22 17:49 | Post Operative Brief Note ---
Immediate Post Op Note v1 Date of Surgery February 22, 2019 Pre & Post Diagnosis Operation Date: 02/22/19 10:25 Pre-Op Diagnosis: Appendicitis Post-Op Diagnosis: Appendicitis Procedure Operation Date: 02/22/19 10:25 Actual Procedures p Laparoscopic Appendectomy(Not Applicable) - Rigo Goncalves MD Surgeon Rigo Goncalves MD Assistant Professor Of Biochemistry b [email or web address] [email or web address] Estimated Blood Loss 10 Findings Consistent with Post-Op Diagnosis
--- NOTE | 2019-02-22 18:03 | Operative Report ---
Post Operative Report Pre & Post Diagnosis Operation Date: 02/22/19 10:25 Pre-Op Diagnosis: Appendicitis Post-Op Diagnosis: Appendicitis Procedure Operation Date: 02/22/19 10:25 Actual Procedures p Laparoscopic Appendectomy(Not Applicable) - Rigo Goncalves MD Patient was brought into the operating theater on the supine position the abdomen was prepped Betadine solution properly draped systemic antibiotics was given timeout was had patient identified made a small incision approximately about an inch above the umbilical opening to the subcutaneous tissue tried g rabbing the abdominal wall with Andrew clamps but the patient had probably about 4 inches of fatty tissue before we were able to get to the abdominal wall therefore we enlarged the incision finally were able to see the fascia which we elevated with Andrew clamps small opening in the fascia was made stay sutures of Vicryl's Vicryl was used we finally were able to get into the abdominal cavity with a 5 mm trocar without the sharp edge CO2 insufflated patient was then placed in Trendelenburg position rotated to the left CO2 inflated to 15 patient significant amount of omentum was sprayed over the abdomen where in the place a 5 mm right upper quadrant port with preemptive local analgesic the needle was just barely going into the abdomen the trocar which 5 mm just barely approximated through the abdominal wall at this point with these 2 trochars we able then try to identify the cecum which we were not the patient's cecum actually was done behind the uterus radiographically I elected to place another 5 mm trocar in the left lower quadrant just lateral to the rectus abdominis and similarly here in an angle fashion as reported in the trocar with barely going to the abdomen given her body size and we had to reposition that a few times under direct visualization as it worked its way out with the camera in the umbilical area the other 2 were able then to work on her cecum down out of the pelvis and identified an acutely dilated appendix and mesoappendix did not appear to be inflamed a little thickened the appendix itself was hyperemic but did not have any fibrous exudate. We then created a window between the cecum and the mesoappendix and finally we converted the 5 mm umbilical 4 to 11 mm to accommodate the ABRAN blue stapler at 1 and divided the cecum off the appendix. Staple line was free of any bleeding and appeared to be satisfactory position the mesoappendix was then we worked up with 10 mm clips worked our way to identify the artery securely clipped clipped twice proximally once distally the appendix was placed in Endopouch and taken out through the umbilical port the umbilical port was then repositioned we irrigated the abdomen hemostasis was satisfactory. Individual trochars taken no bleeding identified the patient then we needed to close the abdominal wall opening which was very difficult since she was very deep we try to limit her artery exposure but we were able then to use a #1 and 0 PDS suture interruptedly to close the fascia with 2 sutures of [id number]. The fascia and the opening appeared intact the wound was then irrigated and closed with multiple layer 302 0 Dexon uri for skin edges over which Steri-Strips were skin edges dressing was applied procedure was tolerated well by the patient estimated blood loss approximately 10 cc thank you addendum Kleber tolentino present throughout the procedure helped with exposure retraction wound closure and placed orders on the computer Surgeon Rigo Goncalves MD [employer] Supervisor yen tolentino Estimated Blood Loss 10 Findings Consistent with Post-Op Diagnosis Specimens appendix Description of Procedure reina I attest to the content of the Intraoperative Record and any orders documented therein. Any exceptions are noted below.
[2019-02-22] MEDS ORDERED: PROMETHAZINE HCL 25 MG in SODIUM CHLORIDE 0.9% 50 ML IV STA (18:26)
[2019-02-22] MEDS: fentaNYL citrate 100 MCG/2 ML VIAL IV PRN ×3 (18:26→18:37)
--- NOTE | 2019-02-22 18:45 | Anesthesiology Progress Note ---
Date of Service February 22, 2019 Anesthesia Post Procedure Vital Signs Vital Signs: Temp Pulse Pulse Pulse Pulse Resp BP 02/22/19 18:40 66 16 02/22/19 18:30 60 12 02/22/19 18:20 64 12 02/22/19 18:10 36.5 C 74 13 02/22/19 15:40 36.4 C L 64 18 02/22/19 15:07 36.6 C 63 18 02/22/19 12:54 36.5 C 66 16 02/22/19 12:01 65 21 120/64 02/22/19 12:00 62 22 02/22/19 11:30 69 19 132/66 02/22/19 11:23 78 23 02/22/19 11:22 67 19 114/60 02/22/19 11:21 80 26 H 02/22/19 11:18 37.1 C 02/22/19 09:44 36.5 C 91 H 18 100/68 BP Pulse Ox 02/22/19 18:40 131/79 100 02/22/19 18:30 135/78 100 02/22/19 18:20 131/79 100 02/22/19 18:10 120/52 L 100 02/22/19 15:40 121/55 L 100 02/22/19 15:07 104/63 98 02/22/19 12:54 136/74 98 02/22/19 12:01 98 02/22/19 12:00 99 02/22/19 11:30 97 02/22/19 11:23 98 02/22/19 11:22 96 02/22/19 11:21 98 02/22/19 11:18 02/22/19 09:44 97 Pain Intensity Right Abdomen: Pain Intensity: 2 Transfer of Care Handoff Completed per policy Notes Mental Status: alert / awake / arousable Patient Amnestic to Procedure: Yes Nausea / Vomiting: adequately controlled Pain: adequately controlled Airway Patency, RR, SpO2: stable & adequate BP & HR: stable & adequate Hydration State: stable & adequate Anesthetic Complications: no major complications apparent and Pt Satisfied with anesthetic care
[2019-02-22] MEDS: MoRPHine SULFATE 4 MG/ML 1 ML CARP\\VIAL IV PRN (19:30)
[2019-02-22] MEDS ORDERED: TAMSULOSIN HCL 0.4 MG CAP PO SCH (21:00)
[2019-02-22] MEDS ORDERED: lamoTRIgine 25 MG TAB PO SCH (21:00)
[2019-02-22] MEDS ORDERED: MAGNESIUM OXIDE 400 MG TAB PO SCH (21:00)
[2019-02-22] MEDS ORDERED: ROSUVASTATIN CALCIUM 20 MG TAB PO SCH (21:00)
[2019-02-22] MEDS: TOPIRAMATE 100 MG TAB PO SCH (21:08)
[2019-02-22] MEDS: PROPRANOLOL HCL 20 MG TAB PO SCH (21:09)
[2019-02-22] MEDS: KETOROLAC 30 MG/ML VIAL IV PRN (23:23)
[2019-02-23] MEDS: MoRPHine SULFATE 4 MG/ML 1 ML CARP\\VIAL IV PRN (02:43)
[2019-02-23] MEDS: LACTATED RINGER'S 1,000 ML IV SCH (02:43)
[2019-02-23 05:42] LABS: Hematocrit (blood only) 37.5 % (37-47); Immature Granulocytes # (auto) 0.02 K/uL (0.00-0.02); Immature Granulocytes % (auto) 0.3 %; Lymphocytes # (auto) 1.04 K/uL (1.2-3.4); Lymphocytes % (auto) 14.1 %; Mean Corpuscular Volume 92.1 fL (80-100); Monocytes % (auto) 1.4 %; Neutrophils # (auto) 6.22 K/uL (1.4-6.5); Neutrophils % (auto) 84.2 %; Platelet Count 288 K/uL (130-400); RDW Standard Deviation 43.8 fL (36.4-46.3); Red Blood Count 4.07 M/uL (4.2-5.4); White Blood Count 7.38 K/uL (4.8-10.8)
[2019-02-23 06:06] LABS: BUN Creatinine Ratio 10.1 (10-20); Calcium 8.6 mg/dl (8.5-10.1); Creatinine Clr Calc Pharmacy 92.2 ml/min; Est GFR (African American) 83.1; Est GFR (Non-African American) 71.7; Potassium 4.2 mmol/L (3.5-5.1)
[2019-02-23] MEDS ORDERED: LEVOTHYROXINE SODIUM 150 MCG TABLET PO SCH (06:30)
[2019-02-23] MEDS: KETOROLAC 30 MG/ML VIAL IV PRN (07:03)
[2019-02-23 07:48] VITALS: PULSE 55; TEMP 98.2; O2SAT 94
--- NOTE | 2019-02-23 08:18 | Surgery Progress Note ---
Date of Service February 23, 2019 Assessment & Plan (1) Appendicitis: POD 1 lap appy [address] with Dr[address] Goncalves WBC normal ok for d/c Subjective no nausea, pain controlled Physical Exam Gastrointestinal (Abdomen): Inspection/Auscultation: + abdominal surgical incision (clean, dry); abdomen not distended Percussion/Palpation: abdomen soft Results & Data Vital Signs (Past 12 Hours) Vital Signs Temp Pulse Resp BP BP Pulse Ox 02/23/19 07:45 36.8 C 55 L 16 98/64 L 94 02/23/19 03:06 36.7 C 58 L 20 105/69 92 02/22/19 22:08 36.8 C 78 18 123/75 93 02/22/19 21:01 36.3 C L 87 20 125/77 96 (1) Appendicitis Acute appendicitis type: unspecified acute appendicitis type Appendicitis type: acute appendicitis Qualified Code(s): K35.80 - Unspecified acute appendicitis
[2019-02-23] MEDS ORDERED: ASPIRIN 81 MG ECTAB PO SCH (09:00)
[2019-02-23] MEDS ORDERED: MULTIVITAMIN TAB PO SCH (09:00)
[2019-02-23] MEDS ORDERED: DULOXETINE HCL 60 MG CAP PO SCH (09:00)
[2019-02-23] MEDS ORDERED: VITAMIN B COMPLEX TAB PO SCH (09:00)
[2019-02-23] MEDS: TOPIRAMATE 100 MG TAB PO SCH (09:13)
[2019-02-23] MEDS: PROPRANOLOL HCL 20 MG TAB PO SCH (09:15)
[2019-02-23] MEDS: ONDANSETRON INJ 2 MG/ML 2 ML VIAL IV PRN (09:18)
--- NOTE | 2019-02-23 09:52 | Discharge Summary ---
Date of Service February 23, 2019 Admission HPI Per Admitting Provider 49 y/o female with 1 week or more of vague abdominal pain, nausea, loss of appetite. She had diarrhea beginning Tuesday, pain has localized to periumbilical/RLQ. She saw her PCP yesterday, had outpatient CT this morning and referred to the ER for reading of appendicitis. Had breakfast around 8:30. No fevers or chills, some nausea, no vomiting. Previous lap lizy. Principal Diagnosis Acute appendicitis Discharge Exam Constitutional WD/WN, vitals as above Gastrointestinal (Abdomen) Inspection/Auscultation: + abdominal surgical incision (clean, dry); abdomen not distended Percussion/Palpation: abdomen soft Discharge Data Allergies Allergy/AdvReac Type Severity Reaction Status Date / Time codeine Allergy Severe TONGUE AND Verified 02/22/19 10:23 THROAT SWELLING Penicillins Allergy Severe HIVES Verified 02/22/19 10:23 Consultations 02/22/19 10:12 ED Decision to Admit Stat Procedures Performed Operation Date: 02/22/19 10:25 Actual Procedures p Laparoscopic Appendectomy(Not Applicable) - Rigo Goncalves MD Hospital Course (1) Appendicitis: 49 y/o female with 1 week history of abdominal pain had outpatient CT and was referred to the ED for appendicitis. She had already eaten breakfast and was admitted to the surgical service and taken to the operating room later that afternoon for laparoscopic appendectomy. She was returned to the surgical [facility] for overnight observation. She was doing well the next morning and was stable for discharge. Total Time Total Time Spent Total Time Spent (In Minutes): 15 Discharge Plan Discharge Items Patient Disposition: Home - Self-Care Reason For Visit: APPENDICITS Discharge Diagnosis: appendectomy Condition: Good Discharge Goals: Decrease discomfort Lifting: No more than 10 pounds Bathing Comment: ok to shower Driving/Machine Use: Resume 3 days after discharge Non-emergency contact: Surgeon Call non-emergency contact if: you have any medication questions, your pain is not controlled, you have a fever, your temperature is above 101.5 and your wound has increased redness Follow-up/Referrals: Rigo Goncalves MD [Surgeon] - (Call to make an appt in 1 week) Fanta Martinez DO [Primary Care Provider] - Diet: Regular Addtl Provider Instructions: Leave steri strips on until follow-up Prescriptions: New oxycodone-acetaminophen [Percocet] 5-325 mg tablet 1 - 2 tab PO Q4H PRN (Reason: pain) Qty: 15 RF: 0 Continued Ajovy 225 mg/1.5 mL syringe 225 mg SQ MONTHLY Qty: 1.5 RF: 11 melatonin 10 mg capsule 10 mg PO HS PRN (Reason: sleep) Qty: 30 RF: 0 propranolol 20 mg tablet 20 mg PO BID Qty: 60 RF: 0 tamsulosin 0.4 mg capsule 0.4 mg PO HS Qty: 90 RF: 3 topiramate [Topamax] 100 mg tablet 100 mg PO BID Qty: 60 RF: 2 aspirin 81 mg tablet,delayed release (DR/EC) 81 mg PO QAM RF: 0 levothyroxine [Synthroid] 150 mcg tablet 150 mcg PO QAM RF: 0 vitamin B complex [B Complex-Vitamin B12] tablet 1 tab PO QAM RF: 0 multivitamin capsule 1 cap PO QAM RF: 0 lamotrigine [Lamictal] 100 mg tablet 50 mg PO PM RF: 0 rosuvastatin [Crestor] 20 mg tablet 20 mg PO PM RF: 0 duloxetine [Cymbalta] 60 mg capsule,delayed release(DR/EC) 60 mg PO QAM RF: 0 magnesium oxide 500 mg capsule 500 mg PO PM RF: 0 Stand-Alone Forms: Call Back Authorization, [facility] Discharge Orders: Discharge Order (Routine); Ordered 02/23/19 Ordered By: Dejan Patel Jr Admission Data Admit Date/Time: 02/22/19 11:37 Attending Provider: Rigo Goncalves Admit Provider: Dejan Patel Jr Primary Care Provider: Fanta Martinez Other Providers: Rigo Goncalves Service: Surgical Services
--- NOTE | 2019-02-23 10:48 | Anesthesiology Progress Note ---
Date of Service February 23, 2019 Anesthesia Post Procedure Vital Signs Vital Signs: Temp Pulse Pulse Pulse Pulse Resp BP 02/23/19 07:45 36.8 C 55 L 16 02/23/19 03:06 36.7 C 58 L 20 02/22/19 22:08 36.8 C 78 18 02/22/19 21:01 36.3 C L 87 20 02/22/19 20:00 36.3 C L 75 18 02/22/19 19:35 36.6 C 75 18 02/22/19 19:05 36.6 C 79 14 02/22/19 18:55 73 19 02/22/19 18:50 36.4 C L 68 12 02/22/19 18:40 66 16 02/22/19 18:30 60 12 02/22/19 18:20 64 12 02/22/19 18:10 36.5 C 74 13 02/22/19 15:40 36.4 C L 64 18 02/22/19 15:07 36.6 C 63 18 02/22/19 12:54 36.5 C 66 16 02/22/19 12:01 65 21 120/64 02/22/19 12:00 62 22 02/22/19 11:30 69 19 132/66 02/22/19 11:23 78 23 02/22/19 11:22 67 19 114/60 02/22/19 11:21 80 26 H 02/22/19 11:18 37.1 C BP BP Pulse Ox 02/23/19 07:45 98/64 L 94 02/23/19 03:06 105/69 92 02/22/19 22:08 123/75 93 02/22/19 21:01 125/77 96 02/22/19 20:00 106/65 95 02/22/19 19:35 110/74 95 02/22/19 19:05 123/78 90 02/22/19 18:55 121/77 95 02/22/19 18:50 124/73 100 02/22/19 18:40 131/79 100 02/22/19 18:30 135/78 100 02/22/19 18:20 131/79 100 02/22/19 18:10 120/52 L 100 02/22/19 15:40 121/55 L 100 02/22/19 15:07 104/63 98 02/22/19 12:54 136/74 98 02/22/19 12:01 98 02/22/19 12:00 99 02/22/19 11:30 97 02/22/19 11:23 98 02/22/19 11:22 96 02/22/19 11:21 98 02/22/19 11:18 Pain Intensity Right Abdomen: Pain Intensity: 6 Notes Mental Status: alert / awake / arousable and participated in evaluation Patient Amnestic to Procedure: Yes Nausea / Vomiting: adequately controlled Pain: adequately controlled Airway Patency, RR, SpO2: stable & adequate BP & HR: stable & adequate Hydration State: stable & adequate Anesthetic Complications: no major complications apparent and Pt Satisfied with anesthetic care
[2019-02-23 10:56] VITALS: BP 123/75
== END 2019-02-23 12:30 | disposition home or self-care (01) ==
LOC: 3N 09:39 → ED 09:39 → 3N 12:30